=== PATIENT | female | born 1950 | race Caucasian/White ===

== ENCOUNTER 2016-06-26 04:04 | Emergency (ER) | payer OTHER ==
[~2016-06-26] VITALS: Ht 162.6 cm; Wt 51.2 kg
[~2016-06-26 04:04] MED LIST: ABILIFY PO; ADVAIR 250/501 DISK IH; ADVAIR IH; ADVIL,NUPRIN,M200 MG PO; ALBUTEROL IH; ALPRAZOLAM0.5 MG PO; AMBIEN5 MG PO; ANTACID MAXIM1000 MG PO; ASCORBIC ACID500 M3 PO; ASPIR-LOW81 MG PO; ATARAX,VISTARIL50 MG PO; AUGMENTIN875 MG PO; AZITHROMYCIN250 MG1 PO; BENADRYL50 MG PO; CARAFATE1 GM PO; CEFDINIR300 MG PO; CIPROFLOXACIN500 M1 PO; CLONIDINE HCL0.1 MG PO; COMBIVENT RESPIM4 GM IH; CYCLOBENZAPRINE5 MG PO; CYMBALTA60 MG PO; DOLOPHINE HCL10 MG PO; ENDOCET 5-3251 EACH PO; FERROUS SULFAT325 MG PO; FLEXERIL10 MG PO; FLONASE16 G1 BOTH NARES; GUAIFENESIN WI120 M1 PO; KLONOPIN1 MG PO; KLOR-CON M2020 MEQ PO; LEVAQUIN500 MG PO; LISINOPRIL PO; LYRICA PO; METHADONE10 MG PO; METHADONE5 MG PO; MIRTAZAPINE15 MG PO; NEURONTIN100 MG PO; NEURONTIN300 MG PO; NICOTINE PATCH1 EAC1 TD; NICOTINE PATCH1 EAC2 TD; NORCO 5/3251 TABLET PO; NORVASC10 MG PO; OMEPRAZOLE20 M2 PO; PANTOPRAZOLE SO40 MG PO; PERCOCET 10/1 TABLET PO; PERCOCET 5/31 TABLET PO; PRAVASTATIN SOD40 MG PO; PREDNISONE10 MG PO; PREDNISONE50 MG PO; PRILOSEC20 MG PO; PROAIR HFA8.5 GM IH; PROTONIX40 MG PO; PROVENTIL HFA6.7 GM IH; ROBITUSSIN AC,T10 ML PO; SEROQUEL XR200 MG PO; SEROQUEL XR300 MG PO; SEROQUEL XR400 MG PO; SEROQUEL XR50 MG PO; SPIRIVA RESPIMAT4 GM IH; SPIRIVA1 INHALATI IH; TESSALON PERLE100 MG PO; TESSALON200 MG PO; TYLENOL W/COD1 COMBO PO; ZESTORETIC 20-1 EAC1 PO; ZOFRAN4 MG PO
[2016-06-26] MEDS ORDERED: TORADOL10 MG PO (05:05)
[2016-06-26] MEDS ORDERED: TRAZODONE HCL50 MG PO (05:05)
[2016-06-26] MEDS ORDERED: LOMOTIL TABLET1 EACH PO (05:05)
[2016-06-26] MEDS ORDERED: CLONIDINE HCL0.1 MG PO (05:05)
[2016-06-26 05:21] VITALS: BP 193/71
== END 2016-06-26 05:36 | disposition home or self-care (01) ==
LOC: EME 04:04
DX: F11.23 Opioid dependence with withdrawal (principal); T40.2X5A Adverse effect of other opioids, initial encounter; G89.29 Other chronic pain; M54.9 Dorsalgia, unspecified; F17.200 Nicotine dependence, unspecified, uncomplicated
CPT/HCPCS: 99281; 99284; J1885

== ENCOUNTER 2016-07-03 02:52 | Emergency (ER) | payer OTHER ==
[~2016-07-03] VITALS: Ht 162.6 cm; Wt 55.8 kg
[~2016-07-03 02:52] MED LIST changes: +LOMOTIL TABLET1 EACH PO; +TORADOL10 MG PO; +TRAZODONE HCL50 MG PO
[2016-07-03 03:49] LABS: MCH 24.1 PG (29.0-34.0); MCHC 30.9 G/DL (30.0-36.0); MEAN PLAT.VOLUME 9.7 uM^3 (9.5-12.4); PLATELET COUNT 367 K/uL (156-360); RBC DIS.WIDTH-CV 17.2 % (11.8-14.6); RBC DIS.WIDTH-SD 47.4 % (39-53); RED BLOOD COUNT 4.36 M/uL (3.80-5.20); WHITE BLOOD COUNT 10.5 K/uL (4.1-10.2)
[2016-07-03 04:00] LABS: CHLORIDE 104 mEq/L (99-109); POTASSIUM 3.1 mEq/L (3.7-5.4); SODIUM 142 mEq/L (136-147)
[2016-07-03 04:03] LABS: GLUCOSE 131 mg/dL (70-99)
[2016-07-03 04:04] LABS: ANION GAP 12 MEQ/L (2-14)
[2016-07-03 04:05] LABS: TOTAL BILIRUBIN 0.4 mg/dL (0.0-1.0)
[2016-07-03 04:06] LABS: ALKALINE PHOSPHATASE 99 IU/L (3-129); GFR ESTIMATE (CALCULATED) > 59 mL/min/
[2016-07-03 04:07] LABS: UREA NITROGEN (BUN) 16 mg/dL (9-23)
[2016-07-03 04:10] LABS: LIPASE 35 U/L (1.0-51.0); TROP-I INTERPRETATION NEGATIVE; TROPONIN-I 0.02 ng/mL (0.0-0.30)
[2016-07-03 04:50] VITALS: BP 150/99
== END 2016-07-03 04:53 | disposition home or self-care (01) ==
LOC: EME → EDBD 02:52 → EME 04:53
PROVIDERS: Emergency Medicine
DX: R07.89 Other chest pain (principal); F41.9 Anxiety disorder, unspecified; E87.6 Hypokalemia; R06.00 Dyspnea, unspecified; R19.7 Diarrhea, unspecified; R00.0 Tachycardia, unspecified; G89.29 Other chronic pain; Z79.891 Long term (current) use of opiate analgesic; J44.9 Chronic obstructive pulmonary disease, unspecified; I10 Essential (primary) hypertension; F17.200 Nicotine dependence, unspecified, uncomplicated
CPT/HCPCS: 71020; 80053; 83690; 84484; 85027; 93005; 99281; 99284; J1885; J2060; J2405; J7030

== ENCOUNTER → 2016-11-14 | Outpatient (CLI) | payer MEDICARE, OTHER | END | disposition home or self-care (01) | LOC: CDC 14:56 | DX: M25.532 Pain in left wrist (principal); S52.532D Colles' fracture of left radius, subsequent encounter for closed fracture with routine healing | CPT/HCPCS: 93000 ==

== ENCOUNTER 2017-03-20 07:25 | Emergency (ER) | payer OTHER ==
[~2017-03-20] VITALS: Ht 162.6 cm; Wt 47.0 kg
[2017-03-20 08:15] LABS: HEMATOCRIT 36.6 % (36.0-46.0); MCH 24.2 PG (29.0-34.0); MCHC 30.6 G/DL (30.0-36.0); MCV 79.2 FL (83-99); MEAN PLAT.VOLUME 9.5 uM^3 (9.5-12.4); PLATELET COUNT 315 K/uL (156-360); RBC DIS.WIDTH-CV 19.3 % (11.8-14.6); RBC DIS.WIDTH-SD 55.5 % (39-53); RED BLOOD COUNT 4.62 M/uL (3.80-5.20); WHITE BLOOD COUNT 8.6 K/uL (4.1-10.2)
[2017-03-20 08:46] LABS: ANION GAP 10 MEQ/L (2-14); CHLORIDE 105 MEQ/L (99-109); POTASSIUM 3.5 MEQ/L (3.7-5.4); SAMPLE HEMOLYSIS CHECK 0; SAMPLE ICTERIC CHECK 0; SAMPLE LIPEMIA CHECK 0; SODIUM 145 MEQ/L (136-147); TOTAL BILIRUBIN 0.5 MG/DL (0.0-1.0)
[2017-03-20 08:51] LABS: ALKALINE PHOSPHATASE 92 IU/L (3-129); GFR ESTIMATE (CALCULATED) > 59 mL/min/; GLUCOSE 116 mg/dL (70-99); LIPASE 7 U/L (1.0-51.0); UREA NITROGEN (BUN) 12 mg/dL (9-23)
[2017-03-20 08:51] LABS: POINT-OF-CARE METER ID UU13113702
[2017-03-20 12:01] LABS: AMPHETAMINE NEGATIVE (500 ng/mL); BARBITURATES NEGATIVE (200 ng/mL); BENZODIAZEPINES PRESUMPTIVE POSITIVE (150 ng/mL); COCAINE NEGATIVE (150 ng/mL); METHADONE NEGATIVE (200 ng/mL); METHAMPHETAMINE NEGATIVE (500 ng/mL); OPIATES (MORPHINE) PRESUMPTIVE POSITIVE (100 ng/mL); PHENCYCLIDINE NEGATIVE (25 ng/mL); THC CANNABINOIDS NEGATIVE (50 ng/mL); TRICYCLIC ANTIDEPRESSANTS PRESUMPTIVE POSITIVE (300 ng/mL)
[2017-03-20 12:02] LABS: ADD MEDTOX COMMENT Y; INTERNAL CONTROLS VALID? YES; OXYCODONE PRESUMPTIVE POSITIVE (100 ng/mL); PROPOXYPHENE NEGATIVE (300 ng/mL)
[2017-03-20 12:28] VITALS: BP 135/103
[2017-03-20 12:48] LABS: BENZODIAZEPINES, URINE SCREEN POSITIVE (200 ng/mL)
== END 2017-03-20 12:29 | disposition home or self-care (01) ==
LOC: EME 07:25
PROVIDERS: Emergency Medicine
DX: T18.128A Food in esophagus causing other injury, initial encounter (principal); X58.XXXA Exposure to other specified factors, initial encounter; K21.9 Gastro-esophageal reflux disease without esophagitis; E87.6 Hypokalemia; D50.9 Iron deficiency anemia, unspecified; J44.9 Chronic obstructive pulmonary disease, unspecified; I10 Essential (primary) hypertension; G89.29 Other chronic pain; Z79.891 Long term (current) use of opiate analgesic; F17.200 Nicotine dependence, unspecified, uncomplicated
CPT/HCPCS: 80053; 82948; 83690; 84999; 85027; 86850; 86900; 86901; 88305; 99281; 99285; G0480; J0330; J1100; J2250; J2270; J2405; J3010